=== PATIENT | male | born 1955 | race African-American/Black ===

== ENCOUNTER 2017-02-23 21:10 | Inpatient (IN) | payer SELFPAY ==
[~2017-02-23] VITALS: Ht 172.7 cm; Wt 81.9 kg
[~2017-02-23 21:10] MED LIST: LISINOPRIL5 MG PO; METFORMIN HCL500 M4 PO; PERCOCET 5/31 TABLET PO; RANITIDINE HCL150 MG PO
[2017-02-23 21:39] LABS: HEMATOCRIT 40.3 % (38.0-50.0); MCHC 33.7 G/DL (30.0-36.0); MCV 80.1 FL (86-99); MEAN PLAT.VOLUME 13.2 uM^3 (9.0-12.4); PLATELET COUNT 224 K/uL (156-360); RBC DIS.WIDTH-CV 13.5 % (11.8-14.6); RBC DIS.WIDTH-SD 38.9 % (39-53); RED BLOOD COUNT 5.03 M/uL (4.00-5.50); WHITE BLOOD COUNT 9.7 K/uL (4.1-10.2)
[2017-02-23 21:48] LABS: CHLORIDE 93 mEq/L (99-109); SODIUM 125 mEq/L (136-147)
[2017-02-23 21:51] LABS: ANION GAP 25 MEQ/L (2-14)
[2017-02-23 21:52] LABS: TOTAL BILIRUBIN 0.8 mg/dL (0.0-1.0)
[2017-02-23 21:53] LABS: ALKALINE PHOSPHATASE 90 IU/L (3-129)
[2017-02-23 21:55] LABS: UREA NITROGEN (BUN) 28 mg/dL (9-23)
[2017-02-23 22:02] LABS: ADD MIUA? YES; BILIRUBIN NEGATIVE; BLOOD MODERATE; COLOR STRAW ((YELLOW)); GLUCOSE (STRIP) >=500; KETONES 20; LEUKOCYTES NEGATIVE; NITRITE NEGATIVE; PROTEIN (STRIP) 30; UROBILINOGEN 0.2 MG/DL (0.2-1.0)
[2017-02-23 22:07] LABS: BACTERIA NONE SEEN /HPF; EPITHELIAL CELLS NONE SEEN /HPF; MUCUS TRACE /LPF; RED BLOOD CELLS 0-5 /HPF (0-5); UCUL ADDED? NO; WHITE BLOOD CELLS 0-5 /HPF (0-5)
[2017-02-23 22:09] LABS: GFR ESTIMATE (CALCULATED) 26 mL/min/; GLUCOSE 745 mg/dL (70-99)
[2017-02-23] MEDS ORDERED: METFORMIN HCL1000 MG PO (23:17)
[2017-02-24] VITALS (17 sets, daily range): BP systolic 89–128; BP diastolic 52–86
[2017-02-24 01:23] LABS: POTASSIUM 5.9 mEq/L (3.7-5.4)
[2017-02-24 01:26] LABS: ANION GAP 20 MEQ/L (2-14); CHLORIDE 104 mEq/L (99-109); SODIUM 133 mEq/L (136-147)
[2017-02-24 01:42] LABS: GFR ESTIMATE (CALCULATED) 33 mL/min/; GLUCOSE 623 mg/dL (70-99)
[2017-02-24 02:22] LABS: UREA NITROGEN (BUN) 27 mg/dL (9-23)
[2017-02-24 03:09] LABS: POINT-OF-CARE METER ID UU13113748
[2017-02-24 03:35] LABS: METH RESISTANT S AUREUS PCR NEGATIVE (NEGATIVE)
[2017-02-24 04:00] LABS: PROBE CHECK PASS; SPECIMEN PROCESSING CONTROL PASS
[2017-02-24 04:01] LABS: POINT-OF-CARE METER ID UU13113748
[2017-02-24 05:07] LABS: POINT-OF-CARE METER ID UU13113748
[2017-02-24 06:19] LABS: POINT-OF-CARE METER ID UU13113748
[2017-02-24 06:38] LABS: ANION GAP 17 MEQ/L (2-14); POTASSIUM 4.9 MEQ/L (3.7-5.4); SAMPLE HEMOLYSIS CHECK 0; SAMPLE ICTERIC CHECK 0; SAMPLE LIPEMIA CHECK 0; SODIUM 139 MEQ/L (136-147); UREA NITROGEN (BUN) 22 mg/dL (9-23)
[2017-02-24 06:50] LABS: CHLORIDE 110 MEQ/L (99-109); GFR ESTIMATE (CALCULATED) 53 mL/min/; GLUCOSE 297 mg/dL (70-99)
[2017-02-24 07:04] LABS: POINT-OF-CARE METER ID UU13113748
[2017-02-24 08:22] LABS: POINT-OF-CARE METER ID UU13113748
[2017-02-24 08:39] LABS: ANION GAP 12 MEQ/L (2-14); CHLORIDE 112 MEQ/L (99-109); GFR ESTIMATE (CALCULATED) 57 mL/min/; GLUCOSE 206 mg/dL (70-99); POTASSIUM 4.5 MEQ/L (3.7-5.4); SAMPLE HEMOLYSIS CHECK 0; SAMPLE ICTERIC CHECK 0; SAMPLE LIPEMIA CHECK 0; SODIUM 140 MEQ/L (136-147); UREA NITROGEN (BUN) 19 mg/dL (9-23)
[2017-02-24 09:30] LABS: POINT-OF-CARE METER ID UU13113748
[2017-02-24 10:25] LABS: POINT-OF-CARE METER ID UU13113748
[2017-02-24 11:00] LABS: POINT-OF-CARE METER ID UU13113748
[2017-02-24 12:25] LABS: POINT-OF-CARE METER ID UU13113748
[2017-02-24 12:57] LABS: ANION GAP 9 MEQ/L (2-14); CHLORIDE 111 MEQ/L (99-109); GFR ESTIMATE (CALCULATED) > 59 mL/min/; GLUCOSE 218 mg/dL (70-99); POTASSIUM 4.4 MEQ/L (3.7-5.4); SAMPLE HEMOLYSIS CHECK 0; SAMPLE ICTERIC CHECK 0; SAMPLE LIPEMIA CHECK 0; SODIUM 139 MEQ/L (136-147); UREA NITROGEN (BUN) 17 mg/dL (9-23)
[2017-02-24 22:06] LABS: ANION GAP 12 MEQ/L (2-14); CHLORIDE 106 MEQ/L (99-109); POTASSIUM 4.1 MEQ/L (3.7-5.4); SAMPLE HEMOLYSIS CHECK 0; SAMPLE ICTERIC CHECK 0; SAMPLE LIPEMIA CHECK 0; SODIUM 134 MEQ/L (136-147)
[2017-02-24 22:13] LABS: GFR ESTIMATE (CALCULATED) > 59 mL/min/; GLUCOSE 358 mg/dL (70-99); UREA NITROGEN (BUN) 14 mg/dL (9-23)
[2017-02-25] VITALS: BP 85/53
[2017-02-25 02:15] VITALS: BP 112/72
[2017-02-25 02:28] LABS: POINT-OF-CARE METER ID UU14149397
[2017-02-25 03:50] LABS: CHLORIDE 110 mEq/L (99-109); POTASSIUM 3.7 mEq/L (3.7-5.4); SODIUM 136 mEq/L (136-147)
[2017-02-25 03:52] LABS: GLUCOSE 208 mg/dL (70-99)
[2017-02-25 03:54] LABS: ANION GAP 13 MEQ/L (2-14)
[2017-02-25 03:56] LABS: GFR ESTIMATE (CALCULATED) 57 mL/min/
[2017-02-25 03:57] LABS: UREA NITROGEN (BUN) 11 mg/dL (9-23)
[2017-02-25 05:49] LABS: POINT-OF-CARE METER ID UU14149397
[2017-02-25 07:52] VITALS: BP 102/59
[2017-02-25 09:53] LABS: MAGNESIUM 1.9 mg/dl (1.3-2.7)
[2017-02-25 09:54] LABS: ANION GAP 9 MEQ/L (2-14); CHLORIDE 109 MEQ/L (99-109); GFR ESTIMATE (CALCULATED) > 59 mL/min/; GLUCOSE 159 mg/dL (70-99); POTASSIUM 3.8 MEQ/L (3.7-5.4); SAMPLE HEMOLYSIS CHECK 0; SAMPLE ICTERIC CHECK 0; SAMPLE LIPEMIA CHECK 0; SODIUM 137 MEQ/L (136-147); UREA NITROGEN (BUN) 9 mg/dL (9-23)
[2017-02-25 10:04] LABS: EOSINOPHIL (%) 0.7 % (0-5); HEMATOCRIT 30.8 % (38.0-50.0); IMMATURE GRANULOCYTE (%) 0.4 % (0.0-0.7); INSTRUMENT ABS NEUTROPHIL CT 3.7 K/uL; LYMPHOCYTE COUNT 1.4 K/uL (1.0-2.8); MCH 27.6 PG (29.0-34.0); MCHC 34.7 G/DL (30.0-36.0); MCV 79.6 FL (86-99); MONOCYTE COUNT 0.5 K/uL (0-0.8); NEUTROPHIL (%) 65.4 % (45-76); NEUTROPHIL COUNT 3.7 K/uL (1.8-6.4); RBC DIS.WIDTH-CV 13.8 % (11.8-14.6); RBC DIS.WIDTH-SD 40.2 % (39-53); WHITE BLOOD COUNT 5.7 K/uL (4.1-10.2)
[2017-02-25 10:06] LABS: RED BLOOD COUNT 3.87 M/uL (4.00-5.50)
[2017-02-25 10:10] LABS: MEAN PLAT.VOLUME 12.1 uM^3 (9.0-12.4); PLAT.SUFFICIENCY ADEQUATE
[2017-02-25 10:46] LABS: PLATELET COUNT 143 K/uL (156-360)
[2017-02-25 14:04] LABS: HDL CHOLESTEROL 40 MG/DL (Desirable>=40); LDL CHOLESTEROL 61 mg/dL (Desirable<100); NON-HDL CHOLESTEROL 97 mg/dL (Desirable<160); TOTAL CHOLESTEROL 137 mg/dL (Desirable<200); TRIGLYCERIDES 179 MG/DL (Normal: <150)
[2017-02-25 15:47] LABS: TROP-I INTERPRETATION NEGATIVE; TROPONIN-I < 0.01 ng/mL (0.0-0.30)
[2017-02-25 15:53] VITALS: BP 110/68
[2017-02-25 16:40] LABS: POINT-OF-CARE METER ID UU14188577
[2017-02-25 21:03] LABS: TROP-I INTERPRETATION NEGATIVE; TROPONIN-I < 0.01 ng/mL (0.0-0.30)
[2017-02-25 23:53] VITALS: BP 108/62
[2017-02-26 03:47] LABS: TROP-I INTERPRETATION NEGATIVE; TROPONIN-I < 0.01 ng/mL (0.0-0.30)
[2017-02-26 06:59] LABS: EOSINOPHIL (%) 0.6 % (0-5); HEMATOCRIT 28.3 % (38.0-50.0); IMMATURE GRANULOCYTE (%) 0.2 % (0.0-0.7); INSTRUMENT ABS NEUTROPHIL CT 2.7 K/uL; LYMPHOCYTE COUNT 1.6 K/uL (1.0-2.8); MCHC 35.3 G/DL (30.0-36.0); MCV 79.3 FL (86-99); MEAN PLAT.VOLUME 13.2 uM^3 (9.0-12.4); MONOCYTE (%) 8.5 % (3-12); MONOCYTE COUNT 0.4 K/uL (0-0.8); NEUTROPHIL (%) 56.9 % (45-76); NEUTROPHIL COUNT 2.7 K/uL (1.8-6.4); PLATELET COUNT 113 K/uL (156-360); RBC DIS.WIDTH-CV 13.8 % (11.8-14.6); RBC DIS.WIDTH-SD 39.8 % (39-53); RED BLOOD COUNT 3.57 M/uL (4.00-5.50); WHITE BLOOD COUNT 4.7 K/uL (4.1-10.2)
[2017-02-26 07:42] LABS: ANION GAP 9 MEQ/L (2-14); CHLORIDE 110 MEQ/L (99-109); GFR ESTIMATE (CALCULATED) > 59 mL/min/; GLUCOSE 130 mg/dL (70-99); MAGNESIUM 1.9 mg/dl (1.3-2.7); POTASSIUM 3.4 MEQ/L (3.7-5.4); SAMPLE HEMOLYSIS CHECK 0; SAMPLE ICTERIC CHECK 0; SAMPLE LIPEMIA CHECK 0; SODIUM 138 MEQ/L (136-147); UREA NITROGEN (BUN) 8 mg/dL (9-23)
[2017-02-26 08:10] VITALS: BP 122/64
[2017-02-26 11:56] LABS: POINT-OF-CARE METER ID UU13113702
[2017-02-26 11:56] LABS: POINT-OF-CARE METER ID UU13113702
[2017-02-26 15:55] VITALS: BP 138/80
[2017-02-26 21:50] LABS: POINT-OF-CARE METER ID UU14149397
[2017-02-26 23:45] VITALS: BP 114/75
[2017-02-27 07:00] LABS: EOSINOPHIL (%) 1.1 % (0-5); HEMATOCRIT 28.8 % (38.0-50.0); IMMATURE GRANULOCYTE (%) 0.3 % (0.0-0.7); INSTRUMENT ABS NEUTROPHIL CT 2.2 K/uL; LYMPHOCYTE COUNT 1.2 K/uL (1.0-2.8); MCH 27.7 PG (29.0-34.0); MCHC 35.1 G/DL (30.0-36.0); MCV 78.9 FL (86-99); MEAN PLAT.VOLUME 13.5 uM^3 (9.0-12.4); MONOCYTE COUNT 0.3 K/uL (0-0.8); NEUTROPHIL (%) 58.4 % (45-76); NEUTROPHIL COUNT 2.2 K/uL (1.8-6.4); PLATELET COUNT 115 K/uL (156-360); RBC DIS.WIDTH-CV 13.5 % (11.8-14.6); RBC DIS.WIDTH-SD 38.8 % (39-53); RED BLOOD COUNT 3.65 M/uL (4.00-5.50); WHITE BLOOD COUNT 3.7 K/uL (4.1-10.2)
[2017-02-27 07:06] LABS: POINT-OF-CARE METER ID UU14188577
[2017-02-27 07:28] LABS: ANION GAP 8 MEQ/L (2-14); CHLORIDE 108 MEQ/L (99-109); GFR ESTIMATE (CALCULATED) > 59 mL/min/; GLUCOSE 180 mg/dL (70-99); MAGNESIUM 1.9 mg/dl (1.3-2.7); POTASSIUM 3.1 MEQ/L (3.7-5.4); SAMPLE HEMOLYSIS CHECK 0; SAMPLE ICTERIC CHECK 0; SAMPLE LIPEMIA CHECK 0; SODIUM 138 MEQ/L (136-147); UREA NITROGEN (BUN) 7 mg/dL (9-23)
[2017-02-27 07:44] VITALS: BP 110/71
[2017-02-27] MEDS ORDERED: ASPIR-LOW81 MG PO (11:38)
[2017-02-27] MEDS ORDERED: NOVOLIN,HU100 UNITS/ SC (11:38)
[2017-02-27 11:50] LABS: POINT-OF-CARE METER ID UU14188577
== END 2017-02-27 15:01 | disposition home or self-care (01) | DRG 638 ==
LOC: EME 21:10 → 3EAST 23:23 → EDOF 23:23 → 4WEST 02-24 02:08 → 3EAST 02-24 16:08
PROVIDERS: Emergency Medicine; Hospitalist; Internal Medicine; Internal Medicine Pulmonary Disease
DX: E13.10 Other specified diabetes mellitus with ketoacidosis without coma (principal); N17.9 Acute kidney failure, unspecified; E87.5 Hyperkalemia; D69.6 Thrombocytopenia, unspecified; N18.3 Chronic kidney disease, stage 3 (moderate); E87.1 Hypo-osmolality and hyponatremia; D64.9 Anemia, unspecified; R94.31 Abnormal electrocardiogram [ECG] [EKG]; F17.200 Nicotine dependence, unspecified, uncomplicated; Z91.14 Patient's other noncompliance with medication regimen; Z79.4 Long term (current) use of insulin
CPT/HCPCS: 36415; 36600; 71010; 80048; 80048 91; 80053; 80061; 81003; 82803; 82948; 83036; 83735; 84100; 84484; 85025; 85027; 87641; 93005; 99281; 99285; J1644; J1815; J7030; J7050